=== PATIENT | female | born 1935 | race Caucasian/White ===

== ENCOUNTER 2023-11-08 15:22 | Emergency (ER) | payer BC ==
[~2023-11-08] VITALS: Ht 160 cm; Wt 50.8 kg
[2023-11-08 15:41] VITALS: BP 135/65; PULSE 94; RESP 19; TEMP 97.7; O2SAT 97
[2023-11-08 17:00] LABS: BILIRUBIN,URINE NEGATIVE (NEGATIVE); BLOOD, URINE 1+ (NEGATIVE); COLOR,URINE YELLOW (YELLOW); LEUKOCYTE ESTERASE ,URINE 2+ (NEGATIVE); NITRITE, URINE POSITIVE (NEGATIVE); PROTEIN,URINE NEGATIVE (NEGATIVE); UGLUCOSE NEGATIVE (NEGATIVE); UROBILINOGEN,URINE 0.2 EU/dL (0.2 - 1)
[2023-11-08 17:09] LABS: APPEARANCE,URINE HAZY (CLEAR)
[2023-11-08 17:11] LABS: BACTERIA,URINE 1+ /HPF (None Seen); MUCUS,URINE None Seen /LPF (None Seen); RBC,URINE 0 /HPF (0-5); SQUAMOUS EPITHELIAL CELL,UR 4-10 (MOD) /LPF (0-3 (FEW))
[2023-11-08] MEDS ORDERED: CEPH-588 PO (17:23)
[2023-11-08] MEDS ORDERED: HYDR-2734 TP (17:23)
[2023-11-08] MEDS ORDERED: MIRABULK PO (17:23)
[2023-11-08 17:30] VITALS: BP 135/65; PULSE 94; RESP 19; TEMP 97.7; O2SAT 90
== END 2023-11-08 17:30 | disposition home or self-care (01) ==
LOC: MED 15:22
DX: N81.10 Cystocele, unspecified (principal); N39.0 Urinary tract infection, site not specified; K64.4 Residual hemorrhoidal skin tags; R18.8 Other ascites; K21.9 Gastro-esophageal reflux disease without esophagitis; M06.9 Rheumatoid arthritis, unspecified; Z86.39 Personal history of other endocrine, nutritional and metabolic disease; Z79.899 Other long term (current) drug therapy
CPT/HCPCS: 81001; 87086; 87186; 99284